=== PATIENT | male | born 1940 | race Caucasian/White ===

== ENCOUNTER 2021-05-01 02:48 | Emergency (ER) | payer MEDICARE, BC ==
--- NOTE | 2021-05-01 03:49 | EDM.PDOC ---
ED HPI GENERAL MEDICAL PROBLEM - General Chief Complaint: Chest Pain Stated Complaint: fall Time Seen by Provider: 05/01/21 03:40 Source of Information: Reports: Patient History Limitations: Reports: No Limitations - History of Present Illness INITIAL COMMENTS - FREE TEXT/NARRATIVE: This patient presents to the emergency department for evaluation of posterior rib pain. He states he fell into a wall-mounted hand dryer 2 days ago and now has "excruciating" pain. He states he cannot sleep. He has not used any medication for this with the exception of 1 dose of Tylenol more than 24 hours ago. He has no difficulty breathing, denies other symptoms or concerns. Right Middle Back Pain Score (Numeric/FACES): 2 - Related Data Allergies Allergy/AdvReac Type Severity Reaction Status Date / Time No Known Allergies Allergy Verified 05/01/21 03:59 Home Meds: Home Meds Acetaminophen [Tylenol Arthritis Pain] 650 mg PO BID 05/01/21 [History] Aspirin [Ecotrin EC] 325 mg PO DAILY 05/01/21 [History] Calcium Carbonate [Calcium] 600 mg PO DAILY 05/01/21 [History] Cholecalciferol (Vitamin D3) [D3-2000] 50 mcg PO DAILY 05/01/21 [History] Fish Oil/DHA/EPA [Fish Oil 1,200 MG] 1 cap PO DAILY 05/01/21 [History] RX: Metoprolol Succinate 25 mg PO BID 05/01/21 [History] RX: Omeprazole 40 mg PO ACBREAKFAST 05/01/21 [History] Simvastatin [Zocor] 20 mg PO DAILY 05/01/21 [History] Tumeric/Ging/Aurora/Oreg/Capryl [Candicidal Capsule] 1 each PO DAILY 05/01/21 [History] traMADol [Ultram] 50 mg PO DAILY 05/01/21 [History] Past Medical History HEENT History: Reports: Cataract Cardiovascular History: Reports: CAD, High Cholesterol, Hypertension Respiratory History: Reports: Other (See Below) Other Respiratory History: pneumonia 1961 Gastrointestinal History: Reports: GERD, Hemorrhoids Genitourinary History: Reports: Chronic Renal Insuffiency, Prostate Disorder Musculoskeletal History: Reports: Back Pain, Chronic, Osteoarthritis, Other (See Below) Other Musculoskeletal History: pain to right lower leg from knee to top of foot, left knee replacement Neurological History: Reports: Neuropathy, Peripheral Endocrine/Metabolic History: Reports: Osteoporosis Oncologic (Cancer) History: Reports: Prostate Dermatologic History: Reports: Psoriasis, Other (See Below) Other Dermatologic History: scalp psoriasis - Infectious Disease History Infectious Disease History: Reports: Measles - Past Surgical History GI Surgical History: Reports: Polypectomy Musculoskeletal Surgical History: Reports: Knee Replacement, Shoulder Surgery Other Oncologic Surgeries/Procedures: Pt had his prostate removed Social & Family History - Family History Family Medical History: No Pertinent Family History Review of Systems - Review of Systems Review Of Systems: Comprehensive ROS is negative, except as noted in HPI. ED EXAM, GENERAL - Physical Exam Exam: See Below Exam Limited By: No Limitations General Appearance: Alert, WD/WN, No Apparent Distress Eye Exam: Bilateral Eye: PERRL Ears: Normal External Exam Nose: Normal Inspection Head: Atraumatic, Normocephalic Neck: Normal Inspection, Non-Tender, Full Range of Motion Respiratory/Chest: No Respiratory Distress, No Accessory Muscle Use Back Exam: Normal Inspection, Full Range of Motion, Other (Patient identifies painful area as posterior right thoracic area. There is no tenderness with palpation, swelling, discoloration, or deformity noted.) Extremities: Normal Inspection Skin Exam: Warm, Dry, Intact Course - Vital Signs Last Recorded V/S: Last Vital Signs Temp 35.9 C L 05/01/21 03:30 Pulse 66 05/01/21 03:30 Resp 16 05/01/21 03:30 BP 141/67 H 05/01/21 03:30 Pulse Ox 96 05/01/21 03:30 - Orders/Labs/Meds Orders: Active Orders 24 hr Category Date Time Status Ribs 2V w Chest Rt [CR] Stat Exams 05/01/21 03:43 Ordered - Re-Assessments/Exams Free Text/Narrative Re-Assessment/Exam: 05/01/21 04:28 This patient presents for evaluation of posterior chest pain. Signs and symptoms are most consistent with chest wall pain of a musculoskeletal source. A broad differential was considered including chest wall injury, rib fracture or contusion, pleurisy, pneumothorax, pneumonia, other intra pulmonary process PE. There is no evidence of a cardiac cause or referred pain from elsewhere. X- ray shows no acute changes. No other sources for this nonreproducible pain are evident based on exam, history or imaging. Supportive outpatient management is indicated including Tylenol every 4 hours, rest, heat or ice. Close follow-up with his primary care provider is indicated. The patient was stable at the time of discharge. Departure - Departure Time of Disposition: 04:30 Disposition: Home, Self-Care 01 Condition: Good Clinical Impression: Rib pain on right side - Discharge Information *PRESCRIPTION DRUG MONITORING PROGRAM REVIEWED*: No *COPY OF PRESCRIPTION DRUG MONITORING REPORT IN PATIENT [place]: No Instructions: Acute Back Pain, Adult Referrals: PCP,None [Primary Care Provider] - Forms: ED Department Discharge Additional Instructions: Discharge home. Tylenol 650mg by mouth every 4 hours for pain. Ice and heat therapy. Follow up with your primary provider as needed. Sepsis Event Note (ED) - Focused Exam Vital Signs: Vital Signs Temp Pulse Resp BP Pulse Ox 05/01/21 03:30 35.9 C L 66 16 141/67 H 96 - My Orders Last 24 Hours: My Active Orders 05/01/21 03:43 Ribs 2V w Chest Rt [CR] Stat - Assessment/Plan Last 24 Hours: My Active Orders 05/01/21 03:43 Ribs 2V w Chest Rt [CR] Stat
[2021-05-01 03:59] VITALS: BP 141/67; PULSE 66
--- NOTE | 2021-05-02 09:33 | CR ---
Date of Service: 05/01/21 Clinical Data: trauma PA CHEST AND RIGHT RIBS: No priors. The heart size is normal. The patient has taken a poor inspiration. No displaced rib fractures. There are mild atelectatic changes in both lung bases. The lungs are otherwise clear. No pneumothorax. No pleural effusions. 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 [id number] [facility]
== END 2021-05-01 04:30 | disposition home or self-care (01) ==
LOC: LB.ED 02:48
DX: R07.81 Pleurodynia (principal); I25.10 Atherosclerotic heart disease of native coronary artery without angina pectoris; E78.00 Pure hypercholesterolemia, unspecified; I12.9 Hypertensive chronic kidney disease with stage 1 through stage 4 chronic kidney disease, or unspecified chronic kidney disease; N18.9 Chronic kidney disease, unspecified; K21.9 Gastro-esophageal reflux disease without esophagitis; M19.90 Unspecified osteoarthritis, unspecified site; Z79.82 Long term (current) use of aspirin; Z79.899 Other long term (current) drug therapy
CPT/HCPCS: 71101-RT; 99283

== ENCOUNTER 2025-06-04 08:32 | Day surgery (SDC) | payer MEDICARE, BC ==
[2025-06-04] MEDS ORDERED: Propofol 200 MG/20 ML SDV ONE (11:00)
[2025-06-04 11:29] VITALS: BP 134/76; PULSE 68
== END 2025-06-04 12:45 | disposition home or self-care (01) ==
LOC: LB.SDS 08:32
PROVIDERS: ATTEND Surgery
DX: Z12.11 Encounter for screening for malignant neoplasm of colon (principal); K64.4 Residual hemorrhoidal skin tags; K57.30 Diverticulosis of large intestine without perforation or abscess without bleeding; I25.10 Atherosclerotic heart disease of native coronary artery without angina pectoris; K21.9 Gastro-esophageal reflux disease without esophagitis; I10 Essential (primary) hypertension; Z80.0 Family history of malignant neoplasm of digestive organs; Z79.899 Other long term (current) drug therapy; Z86.0100 Personal history of colon polyps, unspecified
CPT/HCPCS: G0105; J2704; J7030